=== PATIENT | female | born 1990 | race Caucasian/White ===

== ENCOUNTER → 2020-12-12 | Outpatient (CLI) | payer SELFPAY ==
--- NOTE | 2020-12-13 06:37 | REP ---
INDICATION: POSSIBLE TWIN GESTATION Twin gestation. COMPARISON: None. TECHNIQUE: Transabdominal obstetrical ultrasound with color Doppler evaluation. FINDINGS: Examination demonstrates advanced twin gestation. A single placenta is identified with both cords and no obvious amniotic membrane. These findings cannot exclude monochorionic/monoamniotic . Overall examination is somewhat limited due to advanced age and crowding. Amniotic fluid index 15.8 cm. Selected gestational age: 37 weeks 5 days with ROSIBEL 12/28/2020. TWIN A: Twin A identified in cephalic presentation closest to the os. Placenta is noted anteriorly and grade 3 without evidence for placenta previa or abruption. motion is appreciated. FHR equals 138 beats per minute. Gestational age by current measurements: 36 weeks 5 days. Estimated weight 3440 grams (74th percentile). Limited anatomical assessment without obvious abnormality. TWIN B: Twin B identified in transverse (head to maternal right) further from the os.. Placenta is noted anteriorly and grade 3 without evidence for placenta previa or abruption. motion is appreciated. FHR equals 134 beats per minute. Gestational age by current measurements: 35 weeks 4 days. Estimated weight 3125 grams (45th percentile). Limited anatomical assessment without obvious abnormality. IMPRESSION: Advanced twin gestation. <Electronically signed by Johnathon Harris > 12/13/20 [id number]
== END ==
LOC: M RAD 16:09
PROVIDERS: ATTEND Nurse Practitioner Women's Health
DX: O30.003 Twin pregnancy, unspecified number of placenta and unspecified number of amniotic sacs, third trimester (principal); Z3A.37 37 weeks gestation of pregnancy